=== PATIENT | male | born 1990 ===

== ENCOUNTER 2025-03-17 13:24 | Emergency (ER) | payer SELFPAY ==
[2025-03-17] MEDS: Sodium Chloride 0.9% 1,000 ML IV ONE (14:29)
[2025-03-17] MEDS: Pantoprazole 40 MG in Sodium Chloride 0.9% 10 ML IVPUSH STA (14:29)
[2025-03-17] MEDS: Ondansetron 4 MG/2 ML SDV IVPUSH STA ×2 (14:29→19:23)
[2025-03-17 14:33] LABS: BASOPHILS ABSOLUTE AUTO 0.01 K/uL (0.00-0.20); BASOPHILS PERCENT AUTO 0.1 % (0.0-1.0); EOSINOPHILS ABSOLUTE AUTO 0.01 K/uL (0.00-0.45); EOSINOPHILS PERCENT AUTO 0.1 % (0.0-6.0); HEMATOCRIT 21.5 % (42.0-52.0); IMMATURE GRAN ABSOLUTE AUTO 0.05 K/uL (0.00-0.05); IMMATURE GRAN PERCENT AUTO 0.4 % (0.0-0.4); LYMPHOCYTES ABSOLUTE AUTO 1.31 K/uL (1.00-4.80); LYMPHOCYTES PERCENT AUTO 9.4 % (24.0-44.0); MEAN CORPUSCULAR HEMOGLOBIN 17.9 pg (28.0-32.0); MEAN CORPUSCULAR HGB CONC 27.9 g/dL (32.0-36.0); MEAN PLATELET VOLUME 9.7 fL (9.4-12.4); MONOCYTES ABSOLUTE AUTO 1.56 K/uL (0.00-0.80); MONOCYTES PERCENT AUTO 11.2 % (0.0-8.0); NEUTROPHILS ABSOLUTE AUTO 10.97 K/uL (1.80-7.70); NEUTROPHILS PERCENT AUTO 78.8 % (41.0-71.0); PLATELET COUNT,PLT 789 K/uL (150-400); RED BLOOD CELL COUNT 3.36 M/uL (4.52-5.90); WHITE BLOOD CELL COUNT,WBC 13.91 K/uL (3.9-11.3)
[2025-03-17 14:53] LABS: A/G RATIO 0.6 (0.9-1.6); ALBUMIN 2.4 g/dL (3.4-5.0); BILIRUBIN TOTAL 0.5 mg/dL (0.2-1.0); CALCIUM 8.6 mg/dL (8.5-10.1); CARBON DIOXIDE,CO2 26.7 mmol/L (21.0-32.0); CREATININE 0.9 mg/dL (0.8-1.3); EST CRCL DRUG DOSING (CG) 94.17 mL/min; MAGNESIUM 1.9 mg/dL (1.8-2.4); POTASSIUM,K 3.9 mmol/L (3.5-5.1); PROTEIN TOTAL,TP 6.6 g/dL (6.4-8.2)
[2025-03-17] MEDS: Cyclobenzaprine 10 MG Tab PO ONE (15:17)
[2025-03-17 16:15] LABS: HEMATOCRIT 18.7 % (42.0-52.0); HEMOGLOBIN 5.2 g/dL (14.0-18.0)
[2025-03-17] MEDS: Iopamidol 755 MG/ML 500 ML Multipack Bottle IVPUSH STA (16:27)
[2025-03-17 16:32] LABS: APPEARANCE,URINE CLEAR; COLOR,URINE YELLOW; GLUCOSE,URINE NEGATIVE (NEGATIVE); KETONES,URINE >=80 mg/dL (NEGATIVE); LEUKOCYTE ESTERASE,URINE NEGATIVE (NEGATIVE); NITRITE,URINE NEGATIVE (NEGATIVE); OCCULT BLOOD,URINE NEGATIVE (NEGATIVE); PH,URINE 5.5 (5.0-8.0); PROTEIN,URINE TRACE mg/dL (NEGATIVE); UROBILINOGEN,URINE 0.2 EU/dL (<2.0)
[2025-03-17 16:42] LABS: BILIRUBIN,URINE SMALL (NEGATIVE)
[2025-03-17 16:54] LABS: BACTERIA,URINE FEW (NEGATIVE); EPITHELIAL CELLS,URINE RARE (NONE-FEW); MUCUS,URINE FEW (NONE-MOD); RBC,URINE 0-1 (0-2/HPF); WBC,URINE 0-2 (0-5/HPF)
[2025-03-17] MEDS: methylPREDNISolone Sodium Succinate 40 MG/1 ML SDV IVPUSH STA (17:58)
[2025-03-17] MEDS: Morphine 4 MG/ML Syringe IVPUSH STA (19:24)
== END 2025-03-17 20:25 ==
LOC: MW.ED 13:24
DX: K52.9 Noninfective gastroenteritis and colitis, unspecified (principal); D64.9 Anemia, unspecified; E87.1 Hypo-osmolality and hyponatremia; Z88.0 Allergy status to penicillin; Z75.3 Unavailability and inaccessibility of health-care facilities
CPT/HCPCS: 36415; 36430; 74178; 80053; 81001; 83690; 83735; 85014; 85018; 85025; 86850; 86900; 86901; 86920; 96361; 96374; 96375; 96376; 99285; A9270; J2270; J2405; J2470; J2919; J7030; P9016; Q9967